=== PATIENT | male | born 1975 | race Caucasian/White ===

== ENCOUNTER 2016-05-29 18:14 | Emergency (ER) | payer SELFPAY ==
[2016-05-29 18:35] VITALS: BP 123/70
--- NOTE | 2016-05-29 20:04 | EDM.PDOC ---
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 He said he did not know who Dr Snowden was when I first asked, then said that he thought she was a rehab doctor he has controlled meds filled by 3 other docs since 02/18/16 says he does not have a PCP now does not have a LSO brace, which I recommended has prednisone at home has take APAP up to 7000 gm daily, I told him the max was 4000 mg he requested oxycodone. I told him that he would need to see his PCP for controlled meds. He asked for "a few tramadol". I explained again that he would need to see a PCP. I told him that I would write an Rx for LSO brace and cyclobenzaprine, that he should sleep on a firm mattress, that he should continue his stretching and strengthening, that he should restart the prednisone (which he said he had already) that he needed to work with a PCP. Pt then walked out of ED before I could write his Rx or complete his instructions. - Related Data Allergies/ADRs: Allergies Allergy/AdvReac Type Severity Reaction Status Date / Time amoxicillin Allergy Anaphylactic Verified 05/29/16 18:30 Shock aspirin Allergy Anaphylactic Verified 05/29/16 18:30 Shock ibuprofen [From Motrin] Allergy Anaphylactic Verified 05/29/16 18:30 Shock naproxen Allergy Anaphylactic Verified 05/29/16 18:30 Shock Sulfa (Sulfonamide Allergy Anaphylactic Verified 05/29/16 18:30 Antibiotics) Shock Home Meds: Home Meds Omeprazole 20 mg PO DAILY 05/29/16 [History] Past Medical History - Past Health History Medical/Surgical History: Denies Medical/Surgical History Social & Family History - Tobacco Use Smoking Status *Q: Current Every Day Smoker Years of Tobacco use: 6 Packs/Tins Daily: 1 - Caffeine Use Caffeine Use: Reports: Soda - Recreational Drug Use Recreational Drug Use: No ED ROS GENERAL - Review of Systems Review Of Systems: See Below Constitutional: Reports: no symptoms HEENT: Reports: No symptoms Respiratory: Reports: No Symptoms Cardiovascular: Reports: No symptoms Endocrine: Reports: no symptoms GI/Abdominal: Reports: No symptoms : Reports: no symptoms Musculoskeletal: Reports: back pain Skin: Reports: no symptoms Neurological: Reports: No Symptoms Psychiatric: Reports: No symptoms Hematologic/Lymphatic: Reports: no symptoms Immunologic: Reports: no symptoms ED EXAM,LOWER BACK PAIN/INJURY - Physical Exam Exam: See Below Exam Limited By: No limitations General Appearance: alert, WD/WN, mild distress Respiratory/Chest: no respiratory distress, normal breath sounds Cardiovascular: regular rate, rhythm Back Exam: other (sitting w/c slouched forward, has 1+ tender across his lower mid back, NT at iliac crests and SI joints, does tense his paravertebral muscles when he straightens his back, tenderness greatest at juncture of t- spine and l-spine (at the juncture of the fused t-spine and mobile l-spine)) Psychiatric: normal affect, normal mood Skin Exam: Warm, Dry, Intact, Normal color, No rash Lymphatic: no adenopathy Course - Vital Signs Last Recorded V/S: Last Vital Signs Temp 36.9 C 05/29/16 18:33 Pulse 81 05/29/16 18:33 Resp 20 05/29/16 18:33 BP 123/70 05/29/16 18:33 Pulse Ox 99 05/29/16 18:33 - Orders/Labs/Meds Orders: Active Orders 24 hr Category Date Time Status Lumbar Spine Min 4V [CR] Stat Exams 05/29/16 18:16 Taken - Re-Assessments/Exams Free Text/Narrative Re-Assessment/Exam: 05/29/16 20:07 XR l-spine with complete fusion of lower t-spine, health nl l-spine without DJD Departure - Departure Time of Disposition: 20:07 Disposition: Home, Self-Care 01 Condition: good Clinical Impression: Chronic low back pain, Low back strain, Ankylosing spondylitis Forms: ED Department Discharge Additional Instructions: Pt left before Rx's or instructions could be given. - My Orders Last 24 Hours: My Active Orders 05/29/16 18:16 Lumbar Spine Min 4V [CR] Stat - Assessment/Plan Last 24 Hours: My Active Orders 05/29/16 18:16 Lumbar Spine Min 4V [CR] Stat
--- NOTE | 2016-05-30 13:11 | CR ---
INDICATION: Low back pain after lifting one day ago. LUMBAR SPINE: Frontal and lateral views lumbosacral spine were obtained and revealed the anterior fusion of T11 through L1, which may be a developmental process. Vertebral body and disk heights were fairly well maintained, although, at the L4 -5 level, there is less than the usual height expected, which could represent very minimal disk disease at L4-5. No other bone or joint abnormality was identified. MTDD
== END 2016-05-29 19:55 | disposition left against medical advice (07) ==
LOC: FB.ED 18:14
DX: S39.012A Strain of muscle, fascia and tendon of lower back, initial encounter (principal); M45.6 Ankylosing spondylitis lumbar region; F17.210 Nicotine dependence, cigarettes, uncomplicated; Z88.1 Allergy status to other antibiotic agents; Z88.2 Allergy status to sulfonamides; Z88.8 Allergy status to other drugs, medicaments and biological substances; Z79.899 Other long term (current) drug therapy; X58.XXXA Exposure to other specified factors, initial encounter
CPT/HCPCS: 72110; 99282; 99283